=== PATIENT | female | born 1995 | race Asian ===

== ENCOUNTER 2017-07-02 13:17 | Emergency (ER) | payer OTHER ==
[2017-07-02] MEDS ORDERED: NS 0.9% 1000 ML* 1,000 ML IV ONE (14:11)
[2017-07-02] MEDS ORDERED: Ketorolac INJ* 30 MG/ML 1 ML VIAL IV PUSH ONE (14:11)
[2017-07-02] MEDS ORDERED: Ondansetron ODT TAB* 4 MG PO ONE (14:11)
[2017-07-02 14:38] LABS: ABS Basophils 0 10^3/ul (0-0.2); ABS Eosinophils 0.1 10^3/ul (0-0.6); ABS Lymphocytes 2.1 10^3/ul (1.0-4.8); ABS Monocytes 0.8 10^3/ul (0-0.8); ABS Neutrophils 5.3 10^3/ul (1.5-7.7); ABS Nucleated RBC 0 10^3/ul; Eosinophil % 1.8 % (0-6); Hematocrit 36 % (35-47); Hemoglobin 12.1 g/dl (12.0-16.0); Lymphocyte % 25.2 % (25-47); Mean Corpuscular HGB Conc 33 g/dl (31-36); Mean Corpuscular Hemoglobin 28 pg (27-31); Mean Corpuscular Volume 84 fL (80-97); Mean Platelet Volume 8.6 um3 (7.4-10.4); Nucleated Red Blood Cells % 0; Platelet Count 229 10^3/ul (150-450); Red Blood Count 4.36 10^6/ul (4.0-5.4); Red Cell Distribution Width 13 % (10.5-15); White Blood Count 8.4 10^3/ul (3.5-10.8)
[2017-07-02 14:54] LABS: EGFR Non-African American 148.6 (>60)
--- NOTE | 2017-07-02 15:13 | RAD ---
INDICATION: Left flank pain. COMPARISON: There are no prior studies available for comparison. TECHNIQUE: Multiple real-time images of the left kidney were obtained. FINDINGS: The left kidney is normal in size shape and echogenicity. The kidney measured 10.7 x 4.6 x 4.6 cm. No significant focal abnormality or hydronephrosis was present. IMPRESSION: NEGATIVE EXAM, NO EVIDENCE FOR HYDRONEPHROSIS.
--- NOTE | 2017-07-02 15:23 | RAD ---
INDICATION: Left flank and adnexal pain. COMPARISON: There are no prior studies available for comparison. TECHNIQUE: Multiple real-time transvaginal images of the pelvis were obtained. FINDINGS: The uterus is retroverted and normal in size shape and echogenicity. The uterus measured 5.8 x 3.1 x 4.5 cm. The endometrial echo measured 0.9 cm in thickness. The right ovary measured 3.1 x 1.9 x 2.7 cm. The left ovary measured 3.8 x 1.5 x 2.4 cm. There is vascular flow within both ovaries. There are small bilateral follicular cysts present. There is a trace amount of free intraperitoneal fluid adjacent to the uterus. IMPRESSION: NEGATIVE EXAM.
[2017-07-02] MEDS ORDERED: Naproxen TAB* 250 MG PO ONE (15:53)
[2017-07-02 16:06] LABS: Urine Appearance Clear; Urine Blood 3+ (Negative); Urine Color Straw; Urine Ketones Negative (Negative); Urine Protein Negative (Negative); Urine Specific Gravity 1.008 (1.010-1.030); Urine Urobilinogen Negative (Negative)
[2017-07-02 16:45] VITALS: BP 125/81
--- NOTE | 2017-07-02 18:54 | ED ---
Horacio Woods Jennifer, scribed for Nate Germain MD on 07/02/17 at 1410 . Abdominal Pain/Female - HPI Summary HPI Summary: The patient is a 21 year old female who presents with severe abdominal pain since 0300 this morning. The patient states she got her period at 0300, which was abnormally late by 1.5 weeks. She took some Ibuprofen, but it did not alleviate the pain. Then, about 15 minutes later the patient vomited twice first without blood and then without blood. She then states her left sided abdominal pain increased to an 8. She tried to get out of a chair but fell and couldnt get up due to the pain, so EMS was called. The patient states the pain is now a pulsating sensation and is starting to radiate to her left flank. She reports the pain decreased from an 8/10 to a 6/10. She additionally complains of nausea and increased abdominal pain when she urinates but denies dysuria. - History of Current Complaint Chief Complaint: EDAbdPain Stated Complaint: GENERAL Time Seen by Provider: 07/02/17 13:58 Hx Obtained From: Patient ?: Yes Onset/Duration: Sudden Onset, Lasting Hours - 11 hours, Still Present, Worse Since Timing: Constant Severity Initially: Moderate Severity Currently: Moderate Pain Intensity: 6 Pain Scale Used: 0-10 Numeric Location: Discrete At: LUQ, Discrete At: LLQ Radiates: Yes Radiates to: Flank - left Character: Sharp, Cramping, Other: - "pulsing" Aggravating Factor(s): Movement Alleviating Factor(s): Nothing Associated Signs and Symptoms: Positive: Other: - abdominal pain radiating to left flank, vomiting, nausea. NEGATIVE: dysuria Allergies/Adverse Reactions: Allergies Allergy/AdvReac Type Severity Reaction Status Date / Time No Known Allergies Allergy Verified 07/02/17 13:32 Home Medications: Home Medications [place]-3 Fatty Acids (Nf) [Fish Oil (NF)] 1,000 mg PO DAILY 07/02/17 [History Confirmed 07/02/17] Vitamin B Complex TAB* [B Complex-50*] 1 tab PO DAILY 07/02/17 [History Confirmed 07/02/17] PMH/Surg Hx/FS Hx/Imm Hx Endocrine/Hematology History: Denies: Hx Diabetes Cardiovascular History: Denies: Hx Hypertension GI History: Reports: Hx Gastroesophageal Reflux Disease Infectious Disease History: No Infectious Disease History: Denies: Traveled Outside the [place] in Last 30 Days - Family History Known Family History: Negative: Diabetes - Social History Occupation: Student Alcohol Use: None Hx Substance Use: No Substance Use Type: Reports: None Hx Tobacco Use: No Smoking Status (MU): Never Smoked Tobacco Review of Systems Negative: Fever, Chills Negative: Erythema Negative: Sore Throat Negative: Chest Pain Negative: Shortness Of Breath, Cough Positive: Abdominal Pain, Vomiting, Nausea Positive: flank pain. Negative: dysuria, hematuria Negative: Myalgia, Edema Negative: Rash Neurological: Negative - Dizziness All Other Systems Reviewed And Are Negative: Yes Physical Exam - Summary Physical Exam Summary: Constitutional: Well-developed, Well-nourished, Alert. (-) Distressed Skin: Warm, Dry HENT: Normocephalic; Atraumatic Eyes: Conjunctiva normal Neck: Musculoskeletal ROM normal neck. (-) JVD, (-) Stridor, (-) Tracheal deviation Cardio: Rhythm regular, rate normal, Heart sounds normal; Intact distal pulses; The pedal pulses are 2+ and symmetric. Radial pulses are 2+ and symmetric. (-) Murmur Pulmonary/Chest wall: Effort normal. (-) Respiratory distress, (-) Wheezes, (-) Rales Abd: Soft, Left adnexa tenderness, left CVA tenderness. (-) Distension, (-) Guarding, (-) Rebound Musculoskeletal: (-) Edema Lymph: (-) Cervical adenopathy Neuro: Alert, Oriented x3 Psych: Mood and affect Normal Triage Information Reviewed: Yes Vital Signs On Initial Exam: Initial Vitals Temp Pulse Resp BP Pulse Ox 97.7 F 71 16 99/60 97 07/02/17 13:17 07/02/17 13:17 07/02/17 13:17 07/02/17 13:17 07/02/17 13:17 Vital Signs Reviewed: Yes Diagnostics - Vital Signs Vital Signs Temp Pulse Resp BP Pulse Ox 07/02/17 13:49 98.1 F 58 88/60 100 07/02/17 13:17 97.7 F 71 16 99/60 97 - Laboratory Result Diagrams: 07/02/17 14:27 07/02/17 14:27 Lab Statement: Any lab studies that have been ordered have been reviewed, and results considered in the medical decision making process. - Additional Comments Diagnostic Additional Comments: Transvaginal US. Interpreted by a radiologist. IMPRESSION: NEGATIVE EXAM. Dr. Germain has reviewed this report. Renal US. Interpreted by a radiologist. IMPRESSION: NEGATIVE EXAM, NO EVIDENCE FOR HYDRONEPHROSIS. Dr. Germain has reviewed this report. Re-Evaluation - Re-Evaluation First Eval Re-Evaluation Time: 15:54 Change: Improved Comment: Patient reports her pain is spontaneously all gone now. Her repeat exam was negative. Abdominal Pain Fem Course/Dx - Course Course Of Treatment: The patient is a 21 year old female who presents with severe abdominal pain since 0300 this morning. In the ED course the patient was given Toradol, IV fluids, and Zofran. Bloodwork and Urinalysis were obtained. US Renal and US Transvaginal were obtained. The patient reports she has not been sexually active in 5 months. I do not suspect pelvic infection, and her inflammatory markers were negative. The patient is diagnosed with menses and pelvic pain. She is instructed to follow [facility], , and to take Naproxen as needed for pain. - Diagnoses Provider Diagnoses: Menses painful, Pelvic pain Discharge - Sign-Out/Discharge Documenting (check all that apply): Discharge/Admit/Transfer - Discharge Plan Condition: Stable Disposition: HOME Patient Education Materials: Pelvic Pain in Women (ED) Referrals: [facility] - Дмитрий MARQUES [Primary Care Provider] - Additional Instructions: Follow up with [facility] on 07/05/2017. TAKE NAPROXEN NEEDED FOR PAIN. RETURN TO THE EMERGENCY DEPARTMENT FOR ANY NEW OR WORSENING SYMPTOMS. The documentation as recorded by the Horacio pollard Jennifer accurately reflects the service I personally performed and the decisions made by , Nate Germain MD.
== END 2017-07-02 16:43 | disposition home or self-care (01) ==
LOC: EDBD → ED 13:17
DX: N94.6 Dysmenorrhea, unspecified (principal); R10.2 Pelvic and perineal pain
CPT/HCPCS: 36415; 76775; 76830; 80053; 81003; 81015; 83605; 83690; 84702; 85025; 85652; 86140; 87086; 99283; A9270-GY